=== PATIENT | male | born 1960 | race Caucasian/White ===

== ENCOUNTER → 2016-11-13 | Outpatient (CLI) | payer OTHER ==
[~2016-11-13] VITALS: Ht 193 cm; Wt 127.0 kg
[~2016-11-13] MED LIST: ATOR1TAB21 PO; FURO40TA2 PO; GABA-282 PO; LISI10TA4 PO; METO50TA2 PO; NS 1,000 ML IV ONE; No Historical Meds; PRAD150C PO; PROPOFOL 200 MG/20 ML VIAL As Ordered ONE
[2016-11-13 14:05] VITALS: BP 118/66
== END | disposition home or self-care (01) ==
LOC: M OPP 10:53
PROVIDERS: ATTEND Internal Medicine Gastroenterology
DX: Z12.11 Encounter for screening for malignant neoplasm of colon (principal); D12.2 Benign neoplasm of ascending colon; D12.8 Benign neoplasm of rectum; K57.30 Diverticulosis of large intestine without perforation or abscess without bleeding; Z86.010 Personal history of colon polyps; I48.91 Unspecified atrial fibrillation; M51.9 Unspecified thoracic, thoracolumbar and lumbosacral intervertebral disc disorder; G62.9 Polyneuropathy, unspecified; Z86.73 Personal history of transient ischemic attack (TIA), and cerebral infarction without residual deficits; G47.30 Sleep apnea, unspecified; Z87.891 Personal history of nicotine dependence; Z79.899 Other long term (current) drug therapy